=== PATIENT | male | born 1990 | race Two or more races ===

== ENCOUNTER 2021-07-17 18:41 | Emergency (ER) | payer OTHER ==
[~2021-07-17] VITALS: Ht 167.6 cm; Wt 70.3 kg
--- NOTE | 2021-07-17 18:45 | NUR ---
[employer] ENGINEER AT PT'S BEDSIDE
--- NOTE | 2021-07-17 18:45 | NUR ---
PT difficulty breathing, throat tightness and itching x 1 1/2 hour, s/p eating a cookie at work. ON NRB TOLERATING AT 97%. GENERALIZED REDNESS NOTED
[2021-07-17] MEDS ORDERED: EPINEPHRINE (1:10,000) SYRINGE 1 MG/10 ML DISP.SYRIN ONE (18:46)
[2021-07-17] MEDS ORDERED: EPINEPHRINE (1:1000) 1 MG/ML AMPUL ONE (18:47)
[2021-07-17] MEDS ORDERED: methylPREDNISolone SOD SUCC 125 MG/2ML VIAL ONE (18:47)
[2021-07-17] MEDS ORDERED: diphenhydrAMINE HCL 50 MG/ML VIAL ONE (18:47)
[2021-07-17] MEDS ORDERED: FAMOTIDINE/PF INJ 20 MG/2 ML VIAL IV ONE ×2 (18:49→19:00)
[2021-07-17 18:55] VITALS: BP 134/89
--- NOTE | 2021-07-17 18:56 | NUR ---
RT AT PT'S BEDSIDE
--- NOTE | 2021-07-17 18:56 | NUR ---
IV LAC#18G PATENT AND INTACT; IVF NS INFUSING
[2021-07-17 18:57] LABS: BASOPHILS # (AUTO) 0.1 K/uL (0.0-0.2); BASOPHILS % (AUTO) 1.1 % (0.0-2.0); EOSINOPHILS % (AUTO) 2.1 % (0.0-6.0); HEMATOCRIT 45 % (39-51); HEMOGLOBIN 14.7 g/dL (13.5-17.5); LYMPHOCYTES # (AUTO) 3.3 K/uL (0.8-4.8); LYMPHOCYTES % (AUTO) 47.8 % (20.0-44.0); MEAN CORPUSCULAR HGB CONC 33 g/dl (31.0-36.0); MEAN CORPUSCULAR VOLUME 92 fL (80-96); MONOCYTES # (AUTO) 0.5 K/uL (0.1-1.30); NEUTROPHILS # (AUTO) 2.9 K/uL (1.8-8.9); PLATELET COUNT (AUTO) 291 K/uL (150-450); RED BLOOD CELL COUNT(AUTO) 4.89 MIL/uL (4.5-6.0)
--- NOTE | 2021-07-17 18:59 | NUR ---
pt took benadryl PO prior to arrival. iv benadryl order not given.
[2021-07-17] MEDS ORDERED: diphenhydrAMINE HCL 50 MG/ML VIAL IV ONE (19:00)
[2021-07-17] MEDS ORDERED: IV NS 0.9% 1,000 ML BAG IV ONE (19:00)
[2021-07-17] MEDS ORDERED: EPINEPHRINE (1:1000) MDV 30 MG/30ML VIAL SUBCUT ONE (19:00)
[2021-07-17] MEDS ORDERED: methylPREDNISolone SOD SUCC 125 MG/2ML VIAL IV ONE (19:00)
--- NOTE | 2021-07-17 19:05 | NUR ---
VENIPUNCTURIST AT PT'S BEDSIDE
[2021-07-17 19:12] LABS: CALCIUM, SERUM 8.5 mg/dL (8.5-10.1); CREATININE 0.8 mg/dL (0.6-1.3); POTASSIUM 3.4 mmol/L (3.5-5.1)
--- NOTE | 2021-07-17 19:24 | NUR ---
COVID SWAB COLLECTED AND SENT TO LAB
[2021-07-17] MEDS ORDERED: EPIN0.3P3 IJ (19:27)
--- NOTE | 2021-07-17 19:41 | NUR ---
Patient does not wish to proceed with medical care recommended by Dr. HAYES Patient given information related to possible complications, up to and including , which could occur as a result of leaving the hospital at this time. Patient verbalizes understanding of risks involved due to leaving against medical advice. Patient has signed AMA form. RX GIVEN. TOLERATING R/A WELL AND DENIES SOB AT THIS TIME
== END 2021-07-17 19:45 | disposition left against medical advice (07) ==
LOC: ER 18:45
DX: T78.00XA Anaphylactic reaction due to unspecified food, initial encounter (principal); Z91.018 Allergy to other foods; Z20.822 Contact with and (suspected) exposure to COVID-19; Z53.29 Procedure and treatment not carried out because of patient's decision for other reasons
CPT/HCPCS: 36415; 71045; 80048; 85025; 87426; 96361; 96372; 96374; 96375; 99291; C9803; J0171 ×2; J2930; J3490; J1200